=== PATIENT | male | born 1995 | race African-American/Black ===

== ENCOUNTER 2021-12-04 22:28 | Emergency (ER) | payer OTHER ==
[~2021-12-04] VITALS: Ht 175.3 cm; Wt 59.0 kg
[2021-12-04 22:34] VITALS: BP 120/80
[2021-12-04] MEDS ORDERED: CEFTRIAXONE SODIUM 500 MG/VIAL IM ONE (22:45)
[2021-12-04] MEDS ORDERED: DOXYCYCLINE HYCLATE 100MG CAPSULE PO ONE (22:45)
== END 2021-12-05 | disposition left against medical advice (07) ==
LOC: ER 22:28
DX: R30.0 Dysuria (principal)
CPT/HCPCS: 87491; 87591; 99281